=== PATIENT | male | born 1965 | race Two or more races ===

== ENCOUNTER 2016-10-01 14:03 | Emergency (ER) | payer BC ==
--- NOTE | ~2016-10-01 | CR127 ---
[facility] A Service of [facility] & [facility] RADIOLOGY TEXT RESULTS PATIENT: SELINA GRAHAM LOCATION: CFTX : 69 UNIT #: [id number] AGE: [address]: Eris Pang SEX: M ORDER DR: [id number] [facility] [address] [place], [place] [address] [id number] E MR#: [id number] Acc #: [id number] NAME: SELINA GRAHAM : 1965 SEX: M STUDY DATE/TIME: 10/01/2016 16:14 UNIT: CFTX ROOM: STUDY DESCRIPTION: CR Foot Complete Min 3 View Rt Attending Physician: (Jennifer) Eris Pang Ordering Physician: Jennifer Pang Primary Care Physician: No Primary Care Physician MEDICAL IMAGING REPORT This report is preliminary unless electronic signature is present EXAM Right foot. HISTORY Foot pain on the right after falling onto concrete earlier this afternoon. TECHNIQUE Three views of the foot were obtained. FINDINGS Three views of the foot demonstrate a comminuted calcaneal fracture. The fracture fragments are displaced approximately 8-10 mm. There is widening of the posterior lateral aspect of the subtalar joint. The talus itself appears to be intact and no additional foot fractures are seen. The calcaneocuboid joint appears to be intact. IMPRESSION Comminuted calcaneal fracture with widening of the subtalar joint. No additional fractures are seen. Dictated by... Jimmie Rose M.D. THIS IS AN ELECTRONICALLY VERIFIED REPORT Jimmie Rose M.D. at 10/06/2016 5:48 AM SEBLE/flaquito TD: 10/01/2016 21:23 JOB #: [id number] MEDICAL IMAGING REPORT Page 1 of 1 COPY
--- NOTE | ~2016-10-01 | CR21 ---
[facility] A Service of [facility] & [facility] RADIOLOGY TEXT RESULTS PATIENT: SELINA GRAHAM LOCATION: CFTX : 69 UNIT #: [id number] AGE: [address]: Eris Pang SEX: M ORDER DR: [id number] [facility] [address] [place], [place] [address] [id number] E MR#: [id number] Acc #: [id number] NAME: SELINA GRAHAM : 1965 SEX: M STUDY DATE/TIME: 10/01/2016 16:10 UNIT: CFTX ROOM: STUDY DESCRIPTION: CR Ankle Min 3 Views Rt Ordering Physician: [facility] MEDICAL IMAGING REPORT This report is preliminary unless electronic signature is present EXAM Right ankle HISTORY Right ankle pain after falling on concrete earlier this afternoon. TECHNIQUE 3 views of the ankle were obtained. FINDINGS 3 views of the ankle demonstrate a comminuted calcaneus fracture. The ankle joint itself is intact. The ankle mortise is symmetric. The subtalar joint is widened, especially laterally. Calcaneal fracture fragments are displaced approximately 8 mm. IMPRESSION Comminuted calcaneal fracture with widening of the lateral aspect of the subtalar joint. The ankle joint is unremarkable. Dictated by... Jimmie Rose M.D. THIS IS AN ELECTRONICALLY VERIFIED REPORT Jimmie Rose M.D. at 10/06/2016 5:49 AM RLF/pcl TD: 10/01/2016 20:58 JOB #: [id number] MEDICAL IMAGING REPORT Page 1 of 1 COPY
== END 2016-10-01 17:20 | disposition home or self-care (01) ==
LOC: CED 14:03 → CFTX 14:03
DX: S92.001A Unspecified fracture of right calcaneus, initial encounter for closed fracture (principal); F17.210 Nicotine dependence, cigarettes, uncomplicated; W11.XXXA Fall on and from ladder, initial encounter; Y93.89 Activity, other specified; Y92.69 Other specified industrial and construction area as the place of occurrence of the external cause; Y99.0 Civilian activity done for income or pay
CPT/HCPCS: 29515; 73610; 73630; 99283

== ENCOUNTER → 2016-10-12 | Outpatient (CLI) | payer OTHER, BC ==
--- NOTE | ~2016-10-12 | CT95 ---
[facility] A Service of [facility] & [facility] RADIOLOGY TEXT RESULTS PATIENT: ESLINA GRAHAM LOCATION: CCAT : 69 UNIT #: [id number] AGE: [address]: Andres Poe MD SEX: M ORDER DR: [id number] [facility] [address] [place], [place] [address] [id number] O MR#: [id number] Acc #: [id number] NAME: SELINA GRAHAM : 1965 SEX: M STUDY DATE/TIME: 10/12/2016 10:47 UNIT: CCA ROOM: STUDY DESCRIPTION: CT Lower Ext Rt Wo Cont Attending Physician: Marilu Poe M.D. Referring Physician: Marilu Poe M.D. Ordering Physician: Marilu Poe M.D. Primary Care Physician: Primary Care Physician No MEDICAL IMAGING REPORT This report is preliminary unless electronic signature is present EXAM CT right ankle without contrast - with coronal and sagittal reconstructions 10/12/2016 HISTORY Order states calcaneal fracture. History sheet states fell off an 8 foot ladder 10/01/2016. Ankle pain and swelling since 10/01/2016. No surgery on the ankle. FINDINGS This CT examination was performed with one or more of the following radiation dose reduction techniques: automatic exposure control, adjustment of mA and/or kV according to patient size, and iterative reconstruction. There is a comminuted calcaneal fracture with significant involvement of the posterior facet. There is a sizable depressed and anteriorly rotated articular fracture fragment of the lateral aspect of the posterior facet which is depressed up to 4 mm. There is subsequent widening of the posterior subtalar joint. There is marked comminution along the lateral calcaneal body as well as a cortical fracture fragment along the medial calcaneal body. Small nondisplaced fracture lines extend to the anterior calcaneal facet at the calcaneocuboid articulation. The middle subtalar joint is anatomically aligned. Small nondisplaced fracture lines extend into the middle and anterior facets. Talonavicular joint is unremarkable. Tibiotalar joint is normal. No tibial, fibular, or talar fracture is noted. Ankle tendons show no obvious entrapment. There is marked generalized subcutaneous edema. No additional fracture is noted. IMPRESSION [facility]. [facility] A Service of [facility] RADIOLOGY TEXT RESULTS PATIENT: SELINA GRAHAM LOCATION: [facility] : [birth year] UNIT #: [id number] AGE: [address]: Andres Poe MD SEX: M ORDER DR: Comminuted calcaneal fracture with significant involvement of the posterior facet with depression and posterior subtalar joint widening. The middle and anterior subtalar joints are anatomically aligned with only small fracture lines noted. Dictated by... Karissa Desir M.D. THIS IS AN ELECTRONICALLY VERIFIED REPORT Karissa Desir M.D. at 10/13/2016 11:19 AM YUE/selvin TD: 10/13/2016 10:52 JOB #: [id number] MEDICAL IMAGING REPORT Page 1 of 1 COPY
== END | disposition home or self-care (01) ==
LOC: CCAT 09:00
DX: S92.001A Unspecified fracture of right calcaneus, initial encounter for closed fracture (principal)
CPT/HCPCS: 73700